=== PATIENT | male | born 1975 | race Caucasian/White ===

== ENCOUNTER → 2020-11-25 08:31 | Outpatient (CLI) | payer BC, SELFPAY ==
[2020-10-16 11:36] VITALS: BMI 35.4
[2020-11-25 12:50] LABS: Absolute Lymphocyte Count 1.57 X10^3/uL (0.83-4.51); Absolute Neutrophil Count 3.9 X10^3/uL (2.0-7.7); Basophil# 0.05 X10^3/uL; Basophil% 0.8 % (0-1); Eosinophil# 0.25 X10^3/uL; Eosinophils% 3.9 % (0-5); Hematocrit 48.4 % (40-54); Hemoglobin 15.6 g/dL (13.0-16.5); Lymphocyte # 1.57 X10^3/ul (4.0); Lymphocyte % 24.6 % (19-41); Mean Corp Hgb Conc 32.2 g/dL (32-36); Mean Corpuscular Hgb 28.6 pg (27.0-32.0); Mean Corpuscular Volume 88.8 fL (80-94); Mean Platelet Vol. 11.4 fl (6.2-12.0); Monocyte# 0.59 X10^3/uL; Monocyte% 9.3 % (0-10); NRBC Flagged by Analyzer 0 % (0-5); Neutrophil # 3.89 X10^3/uL (2.7-7.7); Neutrophil % 61.1 % (47-70); Platelet Count 159 K/mm3 (150-450); RBC Distribution Width CV 12.1 % (11.6-14.6); RBC Distribution Width SD 39.3 fl (35.1-43.9); Red Blood Count 5.45 M/mm3 (4.6-6.2); White Blood Count 6.4 K/mm3 (4.4-11.0)
[2020-11-25 13:08] LABS: Hemoglobin A1c 6.1 % (3.8-5.6)
[2020-11-25 13:22] LABS: ALB/GLOB Ratio 1.1 RATIO (0.9-2.4); AST(SGOT) 15 U/L (15-37); Alanine Aminotransfer ALT/SGPT 33 U/L (16-61); Albumin, Serum 3.9 g/dL (3.2-5.0); Alkaline Phosphatase 87 U/L (45-117); Anion Gap 6 (5-15); BUN 18 mg/dL (7-18); BUN/Creat Ratio 15.8 RATIO (10-20); CRP, High Sensitivity Cardiac 1.94 mg/L; Calcium,Total 8.8 mg/dL (8.5-10.1); Chloride 103 mmol/L (98-107); Cholesterol 231 mg/dL (200); Creatinine, Serum 1.14 mg/dL (0.70-1.30); EST Glomerular Filtration Rate 73 mL/min (>60); Est Glom Filt Rate - Afr Amer 89 mL/min (>60); Globulin 3.6 g/dL (2.2-4.2); Glucose 141 mg/dL (74-106); High Density Lipoprotein 25 mg/dL; Potassium 4.5 mmol/L (3.5-5.1); Protein, Total 7.5 g/dL (6.4-8.2); Sodium Level 136 mmol/L (136-145); Triglycerides 843 mg/dL; Uric Acid 6.4 mg/dL (3.5-7.2)
[2020-11-28 20:59] LABS: Lipoprotein A 84.7 nmol/L (<75.0)
== END ==
PROVIDERS: PCP Family Medicine; Visit Provider Family Medicine
DX: Z00.00 Encounter for general adult medical examination without abnormal findings (principal); M10.9 Gout, unspecified; R73.01 Impaired fasting glucose; Z82.49 Family history of ischemic heart disease and other diseases of the circulatory system
CPT/HCPCS: 80053; 80061; 83036; 83695; 84550; 85025; 86141

== ENCOUNTER → 2020-12-07 09:35 | Outpatient (CLI) | payer BC, SELFPAY ==
[2020-10-16 11:36] VITALS: BMI 35.4
--- NOTE | 2020-12-07 09:37 | STEWCON_ITS ---
Reason For Study: FAMILY HX, CHEST PAIN Stress Results Protocol: Mykel Protocol WITH DEFINITY Maximum Predicted HR: 174 bpm Target HR: 148 bpm % Maximum Predicted HR: 97 % DurationHeart Rate Stage (mm:ss) (bpm) BP Comment BASELINE 68 122/764 CC DEFINITY FOR ENTIRE TEST STAGE 1 3:00 103 140/82 STAGE 2 3:00 118 152/82 STAGE 3 3:00 146 182/62 STAGE 4 1:00 169 / NO CHEST PAIN, SLIGHT SOB RECOVERY 111 138/86 Stress Duration: 10:00 mm:ss Maximum Stress HR: 169 bpm Baseline Echocardiogram Findings Stress Echo Wall motion Data Resting WM Intermediate WM Stress WM Interpretation Summary Exercise stress echo. 45-year-old male with a history of family history of coronary disease. Stress protocol: Resting EKG demonstrates normal sinus rhythm with a rate of 72 bpm normal intervals are noted resting blood pressure is 122/76 mmHg. The patient exercised according to regular Mykel protocol for a total duration of 10 minutes. The maximum heart rate attained was 171 bpm which was 98% of max impacted heart rate the maximum workload was 13.4 metabolic equivalents. At rest there were no ST or T wave changes noted suggest ischemia peak exercise upsloping ST changes only were noted with no meet the criteria for ischemia. No clinical angina was noted. The resting blood pressure is 140/82 with a peak blood pressure of 182/62 which was normal blood pressure response to exercise. Stress echocardiographic protocol. The resting echocardiogram demonstrated preserved ejection fraction of 55% with Definity enhancement. At peak exercise there was thickening of all banda and reduction of left ventricular cavity size and peaking of ejection fraction of 75%. No wall motion abnormalities were noted. Conclusion: Exercise stress test with no EKG criteria for ischemia at a high workload. Normal resting and stress echocardiographic images. Excellent functional capacity. Ordering Physician: Keaton Camacho Referring Physician: Keaton Camacho Performed By: Aimee Bates, DANELLE, RVT
== END ==
LOC: CVS 09:36
PROVIDERS: PCP Family Medicine; Referring Provider Family Medicine; Visit Provider Family Medicine
DX: R07.9 Chest pain, unspecified (principal)
CPT/HCPCS: 93017; 93350; Q9957; A4216; C8928

== ENCOUNTER → 2021-03-13 09:15 | Outpatient (CLI) | payer BC, SELFPAY ==
[2020-10-16 11:36] VITALS: BMI 35.4
[2021-03-13 10:23] LABS: Hemoglobin A1c 6.2 % (3.8-5.6)
[2021-03-13 12:46] LABS: Cholesterol 188 mg/dL (200); High Density Lipoprotein 30 mg/dL; Triglycerides 407 mg/dL
[2021-03-14 11:09] LABS: LDL, Direct 120295 77 mg/dL (0-99)
== END ==
PROVIDERS: PCP Family Medicine; Referring Provider Family Medicine; Visit Provider Family Medicine
DX: E78.41 Elevated Lipoprotein(a) (principal); E78.1 Pure hyperglyceridemia
CPT/HCPCS: 36415; 80061; 83036; 83721

== ENCOUNTER 2021-10-17 14:28 | Outpatient (CLI) | payer BC, SELFPAY ==
[2021-10-17 14:43] VITALS: BP 141/83; PULSE 89; RESP 16; TEMP 36.7; O2SAT 98; BMI 33.2
[2021-10-17] MEDS: 0.9% Saline Lock 10 ML Syringe IV (14:45)
[2021-10-17 15:18] VITALS: BP 119/70; PULSE 73; RESP 16; TEMP 36.8; O2SAT 99
[2021-10-17 16:18] VITALS: BP 129/77; PULSE 74; RESP 16; TEMP 36.8; O2SAT 97
== END 2021-10-17 23:59 | disposition home or self-care (01) ==
LOC: MS3OUT 14:29 → MS3 14:31
PROVIDERS: PCP Family Medicine; Referring Provider Nurse Practitioner Acute Care; Visit Provider Nurse Practitioner Acute Care
DX: Z23 Encounter for immunization (principal); U07.1 COVID-19
CPT/HCPCS: J7050; M0245; Q0245; A4216

== ENCOUNTER 2021-11-07 12:18 | Outpatient (CLI) | payer BC, SELFPAY ==
[2021-11-07 14:00] LABS: Anion Gap 4 (5-15); BUN 16 mg/dL (7-18); Calcium,Total 8.6 mg/dL (8.5-10.1); Chloride 108 mmol/L (98-107); Creatinine, Serum 0.94 mg/dL (0.70-1.30); EST Glomerular Filtration Rate 91 mL/min (>60); Est Glom Filt Rate - Afr Amer 110 mL/min (>60); Glucose 148 mg/dL (74-106); Potassium 4.5 mmol/L (3.5-5.1); Sodium Level 140 mmol/L (136-145); Uric Acid 2.9 mg/dL (3.5-7.2)
== END 2021-11-07 23:59 | disposition home or self-care (01) ==
PROVIDERS: PCP Family Medicine; Referring Provider Family Medicine; Visit Provider Family Medicine
DX: M10.9 Gout, unspecified (principal); Z51.81 Encounter for therapeutic drug level monitoring
CPT/HCPCS: 36415; 80048; 84550

== ENCOUNTER 2024-04-28 18:36 | Emergency (ER) | payer SELFPAY ==
[2024-04-28] VITALS (7 sets, daily range): BP systolic 132–145; BP diastolic 78–98; PULSE 82–99; RESP 11–17; TEMP 36.2–36.7; O2SAT 96–99
--- NOTE | 2024-04-28 18:54 | EKG12_ITS ---
Test Reason : CP Blood Pressure : / mmHG Vent. Rate : 085 BPM Atrial Rate : 085 BPM P-R Int : 154 ms QRS Dur : 098 ms QT Int : 352 ms P-R-T Axes : 051 050 029 degrees QTc Int : 418 ms Normal sinus rhythm Normal ECG Confirmed by CALVIN OLIVARES, PATRICIA ([id number]), editor school photograph SAMANTHA WEST ([id number]) on 05/01/2024 10:19:47 AM Referred By: Confirmed By:BUBBA SIMPSON MD
[2024-04-28] MEDS: Aspirin 81 MG TAB.CHEW 324 MG PO (19:10)
[2024-04-28 19:16] LABS: Absolute Neutrophil Count 5.4 X10^3/uL (2.0-7.7); Basophil# 0.07 X10^3/uL; Basophil% 0.8 % (0-1); Eosinophil# 0.26 X10^3/uL; Hematocrit 44.5 % (40-54); Hemoglobin 15.4 g/dL (13.0-16.5); Lymphocyte % 26.2 % (19-41); Mean Corp Hgb Conc 34.6 g/dL (32-36); Mean Corpuscular Hgb 29.4 pg (27.0-32.0); Mean Corpuscular Volume 84.9 fL (80-94); Mean Platelet Vol. 10.8 fl (6.2-12.0); Monocyte# 0.68 X10^3/uL; Monocyte% 7.8 % (0-10); NRBC Flagged by Analyzer 0 % (0-5); Neutrophil # 5.43 X10^3/uL (2.7-7.7); Neutrophil % 61.9 % (47-70); Platelet Count 177 K/mm3 (150-450); RBC Distribution Width CV 12.9 % (11.6-14.6); RBC Distribution Width SD 38.8 fl (35.1-43.9); Red Blood Count 5.24 M/mm3 (4.6-6.2); White Blood Count 8.8 K/mm3 (4.4-11.0)
--- NOTE | 2024-04-28 19:20 | RAD_ITS ---
STUDY: X-RAY CHEST REASON FOR EXAM: Male, 49 years old. CHEST PAIN TECHNIQUE: Single AP portable view of the chest. COMPARISON: None. FINDINGS: The lungs are clear and expanded. There is no demonstrated pleural abnormality. Normal size heart. Normal mediastinum and kamilla. Normal visualized pulmonary arteries. Normal visualized aortic arch and descending thoracic aorta. Normal visualized thoracic spine. Normal visualized ribs, clavicles, and shoulders. There is no demonstrated abnormality of the visualized soft tissue structures of the upper abdomen. RAD/Chest 1 View (Portable) IMPRESSION: Normal x-ray examination of the chest. Electronically Signed: Claude Duarte MD at 20:12 EDT ,
[2024-04-28 19:30] LABS: Anion Gap 7 (5-15); BUN 22 mg/dL (7-18); BUN/Creat Ratio 16.7 RATIO (10-20); Chloride 105 mmol/L (98-107); Creatinine, Serum 1.32 mg/dL (0.70-1.30); EST Glomerular Filtration Rate 61 mL/min (>60); Est Glom Filt Rate - Afr Amer 74 mL/min (>60); Glucose 183 mg/dL (74-106); Potassium 3.9 mmol/L (3.5-5.1); Sodium Level 139 mmol/L (136-145); Troponin-I HS (w/2H Reflex) 18 pg/mL (3.0-78.0)
[2024-04-28 21:10] LABS: Reflex Troponin-HS? (from REC) Y
[2024-04-28 21:42] LABS: Troponin-I HS 15 pg/mL (3.0-78.0)
--- NOTE | 2024-04-28 22:04 | EX.ED.DYSGE1 ---
HPI History of Present Illness Chief Complaint: Chest Pain Detail of Chief Complaint: Patient had chest pressure yesterday with funny sensation left arm and ligh Informant: patient and spouse/S.O. Onset/Context/Timing Onset: Today and Yesterday Current Severity: Gone Maximum Severity: Patient cannot qualitate her quantitate or give duration Worsened by: Nothing that patient is able to recall Relieved by: Nothing Associated Symptoms Associated Symptoms: Tingling left upper extremity Narrative Narrative: Patient is a 49-year-old male. He has history of high triglycerides. He is a non-smoker. Multiple family members with coronary disease at a young age. He has not seen a doctor in 1.5 to 2 years. He is on allopurinol for gout. He is taking no medicine for his elevated triglycerides. Yesterday while doing light work he developed chest discomfort described as pressure and tingling sensation in his arm. He states it was hot outside. He does not recall being diaphoretic, short of breath or nausea. He denied radiation of the pain. He is unable to tell me duration of the symptoms. He does not recall if he had any epigastric pain or back pain. Today he felt fatigued. He did become diaphoretic and was may be slightly short of breath. He had no chest discomfort. He had no tingling in his left upper extremity. He denied abdominal pain or back pain. He denies history of PE or DVT. He denies leg pain, swelling or discoloration. Prior similar symptoms: No Recent Illness/Hospitalization: No PFSH PFSH Medical History Diarrhea Chest pain Arthritis Home Medications ?Medication ?Instructions ?Recorded ?Last Taken ?Type allopurinol 100 mg tablet 100 mg PO QDAY 09/20/17 Unknown History allopurinol 300 mg tablet 600 mg PO DAILY 04/28/24 Unknown History Allergy/AdvReac Type Severity Reaction Status Date / Time No Known Allergies Allergy Verified 04/28/24 19:08 Family History Father Heart disease Social History Smoking Status: Never smoker alcohol intake: never ROS ROS ED Constitutional Constitutional ED: Denies chills, fever(s), subjective or sweats Eyes Eyes: Denies blurry vision or change in vision ENT ENT ED: Denies ear pain, rhinorrhea or sore throat Cardiovascular Cardiovascular: Reports chest pain; Denies orthopnea, palpitations, paroxysmal nocturnal dyspnea or racing heartbeat Respiratory/Chest Respiratory/Chest: Reports dyspnea; Denies cough, dyspnea on exertion, orthopnea or paroxysmal nocturnal dyspnea Gastrointestinal Gastrointestinal: Denies abdominal pain, nausea or vomiting Genitourinary Genitourinary ED: Denies dysuria, hematuria or urinary frequency Musculoskeletal Musculoskeletal: Denies arthralgias, back pain, myalgias or neck pain Integumentary Denies abscess, Abrasions or rash Neurologic Neurologic: Denies paresthesias or weakness Psychiatric Psychiatric: Denies anxiety or depression Endocrine Endocrinology: Denies cold intolerance or heat intolerance Hematologic/Lymphatic Hematologic/Lymphatic: Reports systems reviewed and no addt'l complaints, except as documented EXAM Physical Exam Const Vital Signs: 04/28/24 18:37 04/28/24 18:54 04/28/24 19:36 Temperature 97.2 F L Temperature Source Temporal Pulse Rate 99 92 Respiratory Rate 16 11 L Blood Pressure 145/98 H 145/87 H Blood Pressure Mean 113 106 Pulse Ox 99 96 97 Oxygen Delivery Method Room Air Room Air Room Air 04/28/24 20:00 Temperature Temperature Source Pulse Rate 87 Respiratory Rate 17 Blood Pressure 132/90 H Blood Pressure Mean 104 Pulse Ox 97 Oxygen Delivery Method Positive well nourished and well developed General Appearance ED: well developed and NAD; Negative for cyanotic, diaphoretic or pallor HEENT Reports moist mucous membranes HEENT Narrative: Head is atraumatic no cephalic. Ears normal. Nares patent. Eyes PERRL and EOMs intact bilaterally General Eye ED: Negative for pale conjunctiva or scleral icterus Neck no lymphadenopathy, supple and no JVD Chest Wall inspection of chest normal and palpation of chest normal Resp normal respiratory effort and clear to auscultation bilaterally Cardio regular rate, regular rhythm, S1 normal heart sound, S2 normal heart sound and no murmurs GI normal to inspection, nondistended, normoactive bowel sounds, non-tender, non-distended and no masses; Negative for hepatosplenomegaly Back/Spine no CVA tenderness Extremity Extremity Narrative: There is no asymmetry, swelling, discoloration, leg vein distention, palpable cords or tenderness along the distribution of the deep venous system. Neuro oriented x3, CN's II-XII intact bilaterally and no sensory deficits noted Sensorium / Orientation: alert Motor Exam: strength 5/5 throughout Psych mental status grossly normal Skin no rashes or lesions noted, no wounds and skin turgor normal General Skin Exam: Negative for jaundice or pallor MDM MDM MDM Narrative Medical decision making narrative: Cardiac versus noncardiac. Noncardiac would be pain of unknown etiology, GERD, peptic ulcer disease, esophageal spasm, biliary disease. In light of family history and high cholesterol concern for cardiac. History & Record Review Additional record(s) reviewed:: Prior outpatient record and Prior labs Lab Data Attestation: I reviewed the patient's lab results. Lab results narrative: CBC is normal. Electrolyte panel is remarkable for an elevated BUN/creatinine of 22 and 1.32 with an estimated GFR of 61. Glucose is elevated 183 with normal CO2 anion gap. First troponin was 18-second is 15 with a delta of -3. Labs: Laboratory Results - last 24 hr 04/28/24 04/28/24 19:06 21:19 WBC 8.8 RBC 5.24 Hgb 15.4 Hct 44.5 MCV 84.9 MCH 29.4 MCHC 34.6 RDW Std Deviation 38.8 RDW Coeff of Edmund 12.9 Plt Count 177 MPV 10.8 Immature Gran % (Auto) 0.300 Neut % (Auto) 61.9 Lymph % (Auto) 26.2 [place] % (Auto) 7.8 Eos % (Auto) 3.0 Baso % (Auto) 0.8 Absolute Neuts (auto) 5.4 Absolute Lymphs (auto) 2.30 Nucleated RBC % 0 Sodium 139 Potassium 3.9 Chloride 105 Carbon Dioxide 27.0 Anion Gap 7 BUN 22 H Creatinine 1.32 H Est GFR (MDRD) Af Amer 74 Est GFR (MDRD) Non-Af 61 BUN/Creatinine Ratio 16.7 Glucose 183 H Calcium 9.0 Troponin I High Sens 18 15 Radiography Chest X-Ray - ED: 1 View and Read by ED Physician (Single view portable chest x-ray reveals normal cardiac silhouette and size. Lung parenchyma is normal. There is no evidence of CHF or infiltrate. Hilum is normal. Osseous trucks unremarkable. This was independently reviewed interpreted by me.) Diagnostic Testing: Clinical Impression(s) from Imaging Studies Chest X-Ray 04/28/24 19:20 IMPRESSION: Normal x-ray examination of the chest. Electronically Signed: Claude Duarte MD at 20:12 EDT , EKG Initial EKG: Attestation: I personally reviewed and interpreted this EKG as follows: Interpretation: Sinus Rhythm Treatment and Re-Evaluation :: With patient having a negative delta and 2 normal troponins unlikely this is cardiac. Will recommend follow-up with In outpatient stress test. He does not require admission to the hospital at this time. Discharge Plan Triage Chief Complaint: Chest Pain ED Provider: Jeffrey Villa Dx/Rx/DC Orders Clinical Impression: Chest pressure, Diabetes mellitus, new onset, Elevated blood-pressure reading without diagnosis of hypertension Instructions: ED Chest Pain, Uncertain Cause, ED Hypertension, To Be Confirmed, ED Hyperglycemia New Poss Diabetes Prescriptions: No Action allopurinol 100 mg tablet 100 mg PO QDAY allopurinol 300 mg tablet 600 mg PO DAILY Primary Care Provider: Keaton Camacho Referrals: Keaton Camacho, [Primary Care Provider] - 1 Week Activity Restrictions/Additional Instructions: You need to see Dr. Camacho because your blood sugar is elevated and your blood pressure is elevated. You may need to be started on medication. With regards to your chest pain you will probably need an outpatient stress test in light of your family history Print Language: [place] Disposition Disposition: Home, Self Care
== END 2024-04-28 22:53 | disposition home or self-care (01) ==
PROVIDERS: Emergency Provider Emergency Medicine; PCP Family Medicine; Visit Provider Emergency Medicine
DX: R07.89 Other chest pain (principal); E11.9 Type 2 diabetes mellitus without complications; R03.0 Elevated blood-pressure reading, without diagnosis of hypertension; M10.9 Gout, unspecified; R06.02 Shortness of breath; Z79.899 Other long term (current) drug therapy; Z82.49 Family history of ischemic heart disease and other diseases of the circulatory system
CPT/HCPCS: 71045; 80048; 84484; 85025; 93005; 99283; A4216

== ENCOUNTER → 2024-05-27 | Outpatient (CLI) | payer SELFPAY ==
--- NOTE | 2024-05-27 10:37 | STEWCON_ITS ---
Reason For Study: Chest Pain Stress Results Protocol: Mykel Protocol WITH DEFINITY Maximum Predicted HR: 170 bpm Target HR: 145 bpm % Maximum Predicted HR: 95 % DurationHeart Rate Stage (mm:ss) (bpm) BP Comment Baseline 71 122/78No Chest Pain; 4 ML Definity Mykel Protocol Stage I 3:00 91 128/72No Chest Pain Mykel Protocol Stage II 3:00 103 136/74No Chest Pain Mykel Protocol Stage III 3:00 131 158/72No Chest Pain Mykel Protocol Stage IV 1:15 162 / No Chest Pain Recovery 86 132/70No Chest Pain Stress Duration: 10:15 mm:ss Maximum Stress HR: 162 bpm METS: 13 Baseline Echocardiogram Findings Stress Echo Wall motion Data Resting WM Intermediate WM Stress WM Resting Wall Motion Wall Motion Stress No regional wall motion Normal augmentation of all LV abnormalities noted. wall segments. No echo evidence of ischemia. EKG Data Baseline ECG shows normal sinus rhythm. No diagnostic ischemic changes noted during exercise or in recovery. ECHO/Stress Test Echo W/Contrast Interpretation Summary Total exercise duration 10 minutes and 15 seconds, achieving 95% of maximum pre dicted heart rate. No diagnostic ischemic changes on ECG. No chest pain reported. All LV wall segments augment normally post exercise. Negative exercise stress e cho for ischemia. Ordering Physician: Aimee Aponte Referring Physician: Aimee Aponte Performed By: Aimee Bates, RDJORY, RVT
[2024-05-27 10:53] LABS: Absolute Lymphocyte Count 1.84 X10^3/uL (0.83-4.51); Basophil# 0.04 X10^3/uL; Basophil% 0.7 % (0-1); Eosinophils% 3.6 % (0-5); Hematocrit 44.8 % (40-54); Hemoglobin 14.9 g/dL (13.0-16.5); Lymphocyte # 1.84 X10^3/ul (0.83-4.51); Lymphocyte % 33.3 % (19-41); Mean Corp Hgb Conc 33.3 g/dL (32-36); Mean Corpuscular Hgb 29.1 pg (27.0-32.0); Mean Corpuscular Volume 87.5 fL (80-94); Mean Platelet Vol. 11.3 fl (6.2-12.0); Monocyte# 0.42 X10^3/uL; Monocyte% 7.6 % (0-10); NRBC Flagged by Analyzer 0 % (0-5); Neutrophil # 3.02 X10^3/uL (2.7-7.7); Neutrophil % 54.6 % (47-70); Platelet Count 175 K/mm3 (150-450); RBC Distribution Width CV 12.7 % (11.6-14.6); RBC Distribution Width SD 40.7 fl (35.1-43.9); Red Blood Count 5.12 M/mm3 (4.6-6.2); White Blood Count 5.5 K/mm3 (4.4-11.0)
[2024-05-27 11:40] LABS: ALB/GLOB Ratio 1.1 RATIO (0.9-2.4); AST(SGOT) 26 U/L (15-37); Alanine Aminotransfer ALT/SGPT 31 U/L (16-61); Albumin, Serum 3.9 g/dL (3.2-5.0); Alkaline Phosphatase 76 U/L (45-117); Anion Gap 5 (5-15); BUN 23 mg/dL (7-18); BUN/Creat Ratio 22.1 RATIO (10-20); Calcium,Total 9.5 mg/dL (8.5-10.1); Chloride 108 mmol/L (98-107); Cholesterol 171 mg/dL (200); Creatinine, Serum 1.04 mg/dL (0.70-1.30); EST Glomerular Filtration Rate 80 mL/min (>60); Est Glom Filt Rate - Afr Amer 97 mL/min (>60); Globulin 3.5 g/dL (2.2-4.2); Glucose 124 mg/dL (74-106); High Density Lipoprotein 36 mg/dL; Potassium 4.5 mmol/L (3.5-5.1); Protein, Total 7.4 g/dL (6.4-8.2); Sodium Level 138 mmol/L (136-145); Triglycerides 196 mg/dL; Uric Acid 3.6 mg/dL (3.5-7.2); Very Low Density Lipoprotein 39 mg/dL (5-40)
[2024-05-27 16:06] LABS: Hemoglobin A1c 6.5 % (3.8-5.6)
[2024-05-28 13:08] LABS: CRP, High Sensitivity 1.12 mg/L (0.00-3.00)
[2024-05-28 16:10] LABS: LDL, Direct 120295 97 mg/dL (0-99); Lipoprotein A 150.7 nmol/L (<75.0)
== END | disposition home or self-care (01) ==
PROVIDERS: PCP Family Medicine; Referring Provider Nurse Practitioner Family; Visit Provider Nurse Practitioner Family
DX: Z00.01 Encounter for general adult medical examination with abnormal findings (principal); R07.9 Chest pain, unspecified; E78.1 Pure hyperglyceridemia; R73.03 Prediabetes; E78.41 Elevated Lipoprotein(a); Z82.49 Family history of ischemic heart disease and other diseases of the circulatory system; M10.9 Gout, unspecified
CPT/HCPCS: 36415; 80053; 80061; 83036; 83695; 83721; 84550; 85025; 86141; 93017; 93350; Q9957; A4216; C8928

== ENCOUNTER → 2024-08-31 | Outpatient (CLI) | payer SELFPAY ==
[2024-08-31 12:49] LABS: Cholesterol 228 mg/dL (200); High Density Lipoprotein 30 mg/dL; Triglycerides 511 mg/dL
[2024-08-31 13:47] LABS: Hemoglobin A1c 6.3 % (3.8-5.6)
== END | disposition home or self-care (01) ==
LOC: BFHLAB 09:36
PROVIDERS: PCP Family Medicine; Referring Provider Family Medicine; Visit Provider Family Medicine
DX: E11.9 Type 2 diabetes mellitus without complications (principal); E78.5 Hyperlipidemia, unspecified; Z12.5 Encounter for screening for malignant neoplasm of prostate
CPT/HCPCS: 36415; 80061; 83036; 84153; G0103

== ENCOUNTER 2024-10-27 09:13 | Day surgery (SDC) | payer SELFPAY ==
--- NOTE | 2024-10-26 16:26 | PAT.ANE_ITS ---
Pre-Assessment Diagnosis/Proposed Procedure Planned Operative Procedure(s): COLONOSCOPY Anesthesia History Anesthesia History - mason tender: Anesthesia History - mason tender Hx Hospitalization No 10/23/24 13:11 Any Problems With Anesthesia No 10/23/24 13:11 Cholinesterase deficiency No 10/23/24 13:11 You/Your Family Experience No 10/23/24 13:11 fever (hyperthermia) with Relationship Recent Exposure to Contagious Disease Does patient have nerve No 10/23/24 13:11 stimulator Patient instructed to have device shut off --Does patient have Pacemaker or ICD? When Was Last Pacemaker Check QUESTION #4 FULL TEXT: You/Your Family Experience fever (hyperthermia) with Anesthesia Last Oral Intake Last Oral intake: Last Oral Intake NPO since Meds taken in AM with sips of water? Meds patient instructed to take am of surgery PONV PONV - mason tender: PONV - mason tender Female No 10/23/24 13:11 HX of Motion Sickness No 10/23/24 13:11 HX of N/V After Surgery No 10/23/24 13:11 Non-Smoker Yes 10/23/24 13:11 Duration of Surgery greater No 10/23/24 13:11 than 60 minutes Number of Risk Factors 1 10/23/24 13:11 PONV Score Low Risk 10/23/24 13:11 Height & Weight Height & Weight: Anesthesia: Height & Weight Height 6 ft 10/05/24 09:43 Respiratory Assessment Respiratory Assessment - mason tender: Respiratory Tract Infection Hx - mason tender Hx Respiratory Tract Infection No 10/23/24 13:11 STOP Sleep Apnea STOP Sleep Apnea - mason tender: STOP Sleep Apnea - mason tender Hx Hypertension No 10/23/24 13:11 Hx Sleep Apnea No 10/23/24 13:11 CPAP BIPAP Do you snore loudly (louder No 10/23/24 13:11 than talking or can be heard Do you often feel tired/ No 10/23/24 13:11 fatigued/ sleepy during daytime? Has anyone observed you stop No 10/23/24 13:11 breathing during sleep? STOP Results Negative 10/23/24 13:11 QUESTION #5 FULL TEXT : Do you snore loudly (louder than talking or can be heard through closed doors)? 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 Specify any problems Hx of Preganancy in last 3 N/A 10/23/24 13:11 Months Nurse Filling Out Transfusion [facility] 10/23/24 13:11 & Questions: Date: 10/23/24 10/23/24 13:11 Time: 13:17 10/23/24 13:11 Patient unable to answer at this time (ie. confused, unrespo /Reproduction History /Reproductive History - mason tender: /Reproductive Hx- mason tender Hx Now Gestational Age (in weeks): EDC: Hx Hx Para Hx Section SAB PFSH Medical History (Updated 10/23/24 @ 13:17 by Lorena Paige) High triglycerides Dietary restriction History of IBS Non-smoker History of echocardiogram History of stress test Gout Hypertriglyceridemia Family history of colon cancer in mother Diarrhea Chest pain Arthritis Home Medications ?Medication ?Instructions ?Recorded ?Last Taken ?Type allopurinol 300 mg tablet 600 mg PO DAILY 04/28/24 Unknown History aspirin 81 mg tablet,delayed 81 mg PO QDAY 10/05/24 Unknown History release (Adult Low Dose Aspirin) Allergy/AdvReac Type Severity Reaction Status Date / Time No Known Allergies Allergy Verified 10/23/24 13:10 Family History (Updated 10/05/24 @ 09:39 by Shira Concepcion) Father Heart disease Mother Colon cancer, Onset Age: 72 Grandmother Colon cancer Paternal Aunt Colon cancer Maternal Surgical History Hx of nasal septoplasty Social History (Updated 10/05/24 @ 09:39 by Shira Concepcion) household members: significant other current occupational status: employed Smoking Status: Never smoker alcohol intake: never substance use type: does not use Audit: Pertinent Findings Pertinent Findings EKG Perinent findings: NSR Stress test pertinent findings: Negative for ischemia: 05/23 Echo (EF%) pertinent findings: 60 Recommendation Anesthesia Recommendation Anesthesia recommendation: OPTIMIZED for anesthesia
[2024-10-27] VITALS (7 sets, daily range): BP systolic 96–120; BP diastolic 65–83; PULSE 61–70; RESP 16–18; TEMP 35.8–36.9; O2SAT 95–100; BMI 32.3
--- NOTE | 2024-10-27 09:59 | PRE.ANES_ITS ---
ASA Classification* ASA Classification ASA Classification: 2 Assessment & Plan Anesthesia* Anesthesia Assessment Anesthesia Assessment: Discussed sedation and/or anesthesia options, risks, benefits, and alternatives with patient/parents/legal guardian/POA. Questions invited. The patient/parents/legal guardian/POA seems to understand and agrees to proceed with anesthesia plan. Reviewed the physical assessment, medical history, allergy history and patient home medications list prior to surgery/procedure/anesthetic and documented any changes. Performed airway and anesthesia risk assessments. Anesthesia Type Anesthesia Type: MAC History Source History Obtained from:: Patient and Chart Anesthesia Focused Assessment* Temperature: 96.5 F Pulse Rate: 61 Blood Pressure: 119/83 Respiratory Rate: 18 Pulse Ox: 100 Oxygen Delivery Method: Room Air Airway Assessment Mouth opens: >3 cm Mallampati Score: I Teeth Condition: Intact Neck Range of motion (ROM): Full ROM Focused Labs Anesthesia Preop lab: CBC WBC 5.5 K/mm3 (4.4-11.0) 05/27/24 10:25 RBC 5.12 M/mm3 (4.6-6.2) 05/27/24 10:25 Hgb 14.9 g/dL (13.0-16.5) 05/27/24 10:25 Hct 44.8 % (40-54) 05/27/24 10:25 Plt Count 175 K/mm3 (150-450) 05/27/24 10:25 CHEMISTRY Potassium 4.5 mmol/L (3.5-5.1) 05/27/24 10:25 Sodium 138 mmol/L (136-145) 05/27/24 10:25 BUN 23 mg/dL (7-18) H 05/27/24 10:25 Creatinine 1.04 mg/dL (0.70-1.30) 05/27/24 10:25 Glucose 124 mg/dL (74-106) H 05/27/24 10:25 COAG Pre-Assessment Diagnosis/Proposed Procedure Planned Operative Procedure(s): COLONOSCOPY Anesthesia History 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 When Was Last Pacemaker Check QUESTION #4 FULL TEXT: You/Your Family Experience fever (hyperthermia) with Anesthesia Last Oral Intake Last Oral intake: Last Oral Intake NPO since 06:00 10/27/24 09:34 Meds taken in AM with sips of No 10/27/24 09:34 water? 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 Female No 10/23/24 13:11 HX of Motion Sickness No 10/23/24 13:11 HX of N/V After Surgery No 10/23/24 13:11 Non-Smoker Yes 10/23/24 13:11 Duration of Surgery greater No 10/23/24 13:11 than 60 minutes Number of Risk Factors 1 10/23/24 13:11 PONV Score Low Risk 10/23/24 13:11 Height & Weight Height & Weight: Anesthesia: Height & Weight Height 6 ft 10/27/24 09:34 Weight: 108 kg 10/27/24 09:34 Body Mass Index (BMI) 32.3 10/27/24 09:34 Respiratory Assessment Respiratory Assessment - youth coordinator: Respiratory Tract Infection Hx - youth coordinator Hx Respiratory Tract Infection No 10/23/24 13:11 STOP Sleep Apnea STOP Sleep Apnea - youth coordinator: STOP Sleep Apnea - youth coordinator Hx Hypertension No 10/23/24 13:11 Hx Sleep Apnea No 10/23/24 13:11 CPAP BIPAP Do you snore loudly (louder No 10/23/24 13:11 than talking or can be heard Do you often feel tired/ No 10/23/24 13:11 fatigued/ sleepy during daytime? Has anyone observed you stop No 10/23/24 13:11 breathing during sleep? STOP Results Negative 10/23/24 13:11 QUESTION #5 FULL TEXT : Do you snore loudly (louder than talking or can be heard through closed doors)? 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 Specify any problems Hx of Preganancy in last 3 N/A 10/23/24 13:11 Months Nurse Filling Out Transfusion [facility] 10/23/24 13:11 & Questions: Date: 10/23/24 10/23/24 13:11 Time: 13:17 10/23/24 13:11 Patient unable to answer at this time (ie. confused, unrespo /Reproduction History /Reproductive History - youth coordinator: /Reproductive Hx- youth coordinator Hx Now Gestational Age (in weeks): EDC: Hx Hx Para Hx Section SAB PFSH Medical History High triglycerides Dietary restriction History of IBS Non-smoker History of echocardiogram History of stress test Gout Hypertriglyceridemia Family history of colon cancer in mother Diarrhea Chest pain Arthritis Home Medications ?Medication ?Instructions ?Recorded ?Last Taken ?Type allopurinol 300 mg tablet 600 mg PO DAILY 04/28/24 10/25/24 History aspirin 81 mg tablet,delayed 81 mg PO QDAY 10/05/24 Unknown History release (Adult Low Dose Aspirin) Allergy/AdvReac Type Severity Reaction Status Date / Time No Known Allergies Allergy Verified 10/27/24 09:32 Family History Father Heart disease Mother Colon cancer, Onset Age: 72 Grandmother Colon cancer Paternal Aunt Colon cancer Maternal Surgical History Hx of nasal septoplasty Social History household members: significant other current occupational status: employed Smoking Status: Never smoker alcohol intake: never substance use type: does not use Review of Systems (Anesthesia) ROS Narrative System reviewed and no additional complaints, except as documented.
--- NOTE | 2024-10-27 10:14 | H&P.OPEN ---
HPI - General HPI Narrative ZAYDA HIDALGO, is a 49 M who presents for screening colonoscopy. He has never had a colonoscopy in the past. He denies abdominal pain or blood in the stool. He does have family history of colon cancer in his mother in her 70s and an aunt in her 70s. [facility] Medical History High triglycerides Dietary restriction History of IBS Non-smoker History of echocardiogram History of stress test Gout Hypertriglyceridemia Family history of colon cancer in mother Diarrhea Chest pain Arthritis Home Medications ?Medication ?Instructions ?Recorded ?Last Taken ?Type allopurinol 300 mg tablet 600 mg PO DAILY 04/28/24 10/25/24 History aspirin 81 mg tablet,delayed 81 mg PO QDAY 10/05/24 Unknown History release (Adult Low Dose Aspirin) Allergy/AdvReac Type Severity Reaction Status Date / Time No Known Allergies Allergy Verified 10/27/24 09:32 Family History Father Heart disease Mother Colon cancer, Onset Age: 72 Grandmother Colon cancer Paternal Aunt Colon cancer Maternal Surgical History Hx of nasal septoplasty Social History household members: significant other current occupational status: employed Smoking Status: Never smoker alcohol intake: never substance use type: does not use Past Medical/Surgical History Planned Operation Planned Operative Procedure(s): COLONOSCOPY Previous Hospitalizations/Surgeries HX Hospitalizations: No Any Problems With Anesthesia: No You/Your Family Experience Fever (Hyperthermia) With Anes: No Cholinesterase deficiency: No Cardiovascular Hx Hypertension: No Respiratory Hx Sleep Apnea: No Hx Respiratory Tract Infection/Cold (presently): No Do You Snore Loudly (louder than talking or can be heard): No Do You Often Feel Tired/ Fatigued/ Sleepy Dring Daytime?: No Has Anyone Observed You Stop Breathing During Sleep?: No Result (for STOP score): Negative Smoking Status: Never smoker Neurological Hx Seizures: No Does patient have nerve stimulator: No Genitourinary Hx Renal Disease: No Endocrine Hx Diabetes: No Miscellaneous Hx Cancer: No Recent Exposure to Contagious Disease: No Allergies No Known Allergies Allergy (Verified 10/27/24 09:32) Discharge Is Pt Admitted From a Long-Term, or a Detention: No Who Could Help: GIRLFRIEND After D/C, Where Do you Plan to Go: Return Home Vital Signs Vital Signs Vital Signs: 10/27/24 09:34 10/27/24 10:04 Temperature 96.5 F L 96.5 F L Temperature Source Temporal Pulse Rate 61 61 Respiratory Rate 18 18 Blood Pressure 119/83 H 119/83 H Blood Pressure Mean 95 Blood Pressure Source Monitor Blood Pressure Position Semi-Fowlers Blood Pressure Location Left Arm Pulse Ox 100 100 Oxygen Delivery Method Room Air Room Air Weight Weight: 238 lb 1.588 oz Body Mass Index (BMI) 32.3 Physical Exam Const alert and oriented x3 HEENT normocephalic Eyes PERRL Resp normal respiratory effort and normal air movement Cardio regular rate and regular rhythm GI soft to palpation, non-tender and non-distended Extremity normal to inspection Assessment & Plan Assessment/Plan (1) Encounter for screening for malignant neoplasm of colon: PLAN: I explained endoscopy in detail to the patient. I explained the risks including but not limited to stroke or heart attack with anesthesia, perforation of the GI tract, bleeding, infection. I explained that any of these could necessitate further emergency surgery. The patient understands and all questions were answered sufficiently. The patient wishes to proceed with procedure. Uriel Kerr MD Pager: [facility] [address] [place] [address], [address] [place] [address] Office: Surgery Risks - Colonoscopy Risks Include but are not Limited To: Risks include but are not limited to: Bleeding, perforation requiring further surgery, inability to complete colonoscopy requiring barium enema.
--- NOTE | 2024-10-27 10:39 | OP.CCLET_ITS ---
10/27/2024 Keaton Camacho [address] [place] [address] Re : Colonoscopy procedure for Nate Fournier Dear Dr. Camacho This procedure was performed on Sunday, October 27, 2024. My impressions and recommendations are as follows: Impressions : - The entire examined colon is normal on direct and retroflexion views. - No specimens collected. Recommendations : - Discharge patient to home. - Resume previous diet. - Continue present medications. - Repeat colonoscopy in 5 years for surveillance. My findings are described in the full procedure note, which is enclosed. If I can be of further assistance, please feel free to contact me at Doctor phone number(s): , Work: . Sincerely, Uriel Kerr MD 10/27/2024 10:38:30 AM This report has been signed electronically.
--- NOTE | 2024-10-27 10:39 | OP.COLON_ITS ---
Patient Name: Nate Fournier Procedure Date: 10/27/2024 10:18 AM Date of : 1975 Age: 49 Procedure: Colonoscopy Indications: Screening patient at increased risk: Family history of 1st-degree relative with colorectal cancer at age 60 years (or older) Providers: Uriel Kerr MD Referring MD: Keaton Camacho Medicines: Propofol per Anesthesia Patient Profile: This is a 49 year old male. Refer to note in patient chart for documentation of history and physical. Last Colonoscopy: none. The patient's first colonoscopy is today. Complications: No immediate complications. Procedure: Pre-Anesthesia Assessment: - Prior to the procedure, a History and Physical was performed, and patient medications and allergies were reviewed. The patient's tolerance of previous anesthesia was also reviewed. The risks and benefits of the procedure and the sedation options and risks were discussed with the patient. All questions were answered, and informed consent was obtained. Prior Anticoagulants: The patient has taken no anticoagulant or antiplatelet agents. ASA Grade Assessment: II - A patient with mild systemic disease. After reviewing the risks and benefits, the patient was deemed in satisfactory condition to undergo the procedure. After I obtained informed consent, the scope was passed under direct vision. Throughout the procedure, the patient's blood pressure, pulse, and oxygen saturations were monitored continuously. The colonoscope was introduced through the anus and advanced to the cecum, identified by appendiceal orifice and ileocecal valve. The colonoscopy was performed without difficulty. The patient tolerated the procedure well. The quality of the bowel preparation was good. The ileocecal valve, appendiceal orifice, and rectum were photographed. Scope In: 10:25:31 AM Scope Withdrawal Time 0 hours 6 minutes 14 seconds Scope Out: 10:35:13 AM Total Procedure Duration Time 0 hours 9 minutes 42 seconds Findings: The entire examined colon appeared normal on direct and retroflexion views. Impression: - The entire examined colon is normal on direct and retroflexion views. - No specimens collected. Recommendation: - Discharge patient to home. - Resume previous diet. - Continue present medications. - Repeat colonoscopy in 5 years for surveillance. Procedure Code(s): --- Professional --- 02468, Colonoscopy, flexible; diagnostic, including collection of specimen(s) by brushing or washing, when performed (separate procedure) Diagnosis Code(s): --- Professional --- Z80.0, Family history of malignant neoplasm of digestive organs CPT copyright 2021 [employer]. All rights reserved. The codes documented in this report are preliminary and upon interpretative dancer review may be revised to meet current compliance requirements. Uriel Kerr MD 10/27/2024 10:38:30 AM This report has been signed electronically. Number of Addenda: 0 Note Initiated On: 10/27/2024 10:18 AM
--- NOTE | 2024-10-27 11:11 | PCM.POST.ANE ---
Anesthesia: Postop Eval I Current Vital Signs Temperature: 97.2 F Pulse Rate: 67 Blood Pressure: 96/65 Respiratory Rate: 16 Pulse Ox: 97 Assessment Airway patent: Yes Spontaneous unlabored respirations: Yes nausea: No Vomiting: No Anesthesia Complication: No Fluid Hydration Crystalloid volume administer (ml): 30 Total IV fluid infused: 30 Progress Note Anesthesia document: Postop Eval 1 completed: Yes
--- NOTE | 2024-10-27 22:42 | POSTOPAN2_ITS ---
Anesthesia Postop Eval I Sum Postop Eval Completion status Anesthesia document: Postop Eval 1 completed: Yes Anesthesia Postop Eval I Summary Anesthesia Postop Eval I Summary: Anesthesia Postop Eval I: Assessment Summary Airway patent Yes 10/27/24 11:11 SPOUTING [email or web address] Spontaneous unlabored Yes 10/27/24 11:11 SPOUTING [email or web address] respirations Mental status nausea No 10/27/24 11:11 SPOUTING [email or web address] Vomiting No 10/27/24 11:11 SPOUTING [email or web address] Anesthesia Postop Eval I: Fluid Summary Crystalloid volume administer 30 10/27/24 11:11 SPOUTING [email or web address].TNES (ml) Colloids volume administered ( ml) Blood Product volume administered (ml) Total IV fluid infused 30 10/27/24 11:11 SPOUTING [email or web address] Anesthesia Postop Eval I: Summary Notes Anesthesia Complication No 10/27/24 11:11 SPOUTING [email or web address] Anesthesia Complication Comment: Post-operative progress note Anesthesia: Postop Eval II Evaluation Mental status: Awake and Calm Pain Level: 0 nausea: No Vomiting: No Complications Anesthesia Complication: No
--- NOTE | 2024-10-27 22:42 | PCM.POSTANE2 ---
Anesthesia Postop Eval I Sum Postop Eval Completion status Anesthesia document: Postop Eval 1 completed: Yes Anesthesia Postop Eval I Summary Anesthesia Postop Eval I Summary: Anesthesia Postop Eval I: Assessment Summary Airway patent Yes 10/27/24 11:11 [email or web address] Spontaneous unlabored Yes 10/27/24 11:11 [email or web address] respirations Mental status nausea No 10/27/24 11:11 [email or web address] Vomiting No 10/27/24 11:11 [email or web address] Anesthesia Postop Eval I: Fluid Summary Crystalloid volume administer 30 10/27/24 11:11 [email or web address] (ml) Colloids volume administered ( ml) Blood Product volume administered (ml) Total IV fluid infused 30 10/27/24 11:11 [email or web address] Anesthesia Postop Eval I: Summary Notes Anesthesia Complication No 10/27/24 11:11 [email or web address] Anesthesia Complication Comment: Post-operative progress note Anesthesia: Postop Eval II Evaluation Mental status: Awake and Calm Pain Level: 0 nausea: No Vomiting: No Complications Anesthesia Complication: No
== END 2024-10-27 11:03 | disposition home or self-care (01) ==
LOC: EN 09:17 → AC 09:18
PROVIDERS: PCP Family Medicine; Referring Provider Family Medicine; Visit Provider Surgery
PROC: 0DJD8ZZ Inspection of Lower Intestinal Tract, Via Natural or Artificial Opening Endoscopic (ICD-10-PCS; CPT 45378; principal; 2024-10-27 10:10)
DX: Z12.11 Encounter for screening for malignant neoplasm of colon (principal); Z80.0 Family history of malignant neoplasm of digestive organs; Z79.899 Other long term (current) drug therapy
CPT/HCPCS: 45378; A4216